=== PATIENT | female | born 1985 | race African-American/Black ===

== ENCOUNTER 2016-10-12 09:09 | Day surgery (SDC) | payer OTHER ==
[2016-10-08 12:40] VITALS: BMI 32.8
[2016-10-12] MEDS ORDERED: BUPIVACAINE HCL/PF 0.5% (5MG/ML) 10 ML VIAL ONE (10:31)
[2016-10-12] MEDS ORDERED: LIDOCAINE HCL 1%, 10 MG/ML (20ML VIAL) ONE (10:31)
[2016-10-12] MEDS ORDERED: PROPOFOL 20 ML ONE (10:39)
[2016-10-12] MEDS ORDERED: MIDAZOLAM HCL 2 MG/2 ML SINGLE DOSE VIAL ONE (10:39)
[2016-10-12] MEDS ORDERED: SODIUM CHLORIDE 0.9% P/F 10 ML VIAL IJ ONE (10:44)
[2016-10-12] MEDS ORDERED: LIDOCAINE HCL/PF 2% SDV 5ML VIAL ONE (10:44)
[2016-10-12] MEDS ORDERED: ceFAZolin SODIUM 1 GM VIAL ONE (10:44)
[2016-10-12] MEDS ORDERED: LIDOCAINE HCL 1%, 10 MG/ML (20ML VIAL) IJ ONE (10:49)
[2016-10-12] MEDS ORDERED: BUPIVACAINE HCL/PF 0.5% (5MG/ML) 10 ML VIAL IJ ONE ×2 (10:49→11:33)
[2016-10-12] MEDS ORDERED: DEXAMETHASONE SOD PHOSPHATE 4 MG/1 ML VIAL ONE ×2 (10:51→11:17)
[2016-10-12] MEDS ORDERED: KETOROLAC TROMETHAMINE 30 MG/1 ML VIAL ONE (10:53)
[2016-10-12] MEDS ORDERED: DEXAMETHASONE SOD PHOSPHATE 4 MG/1 ML VIAL NR ONE (11:33)
--- NOTE | 2016-10-12 11:52 | HP ---
Admitting History and Physical - Admission Chief Complaint: Painful right 3rd and 4th Hammertoes History of Present Illness: Painful when walking in shoes. History Source: Patient - Past Medical History ...LMP: 10/04/16 ...: No Musculoskeletal: Yes: Other (Hammertoes right 3rd and 4th toe) - Smoking History Smoking history: Never smoked Have you smoked in the past 12 months: No - Alcohol/Substance Use Hx Alcohol Use: Yes (RARE) Home Medications - Allergies Allergies/Adverse Reactions: Allergies Allergy/AdvReac Type Severity Reaction Status Date / Time No Known Drug Allergies Allergy Verified 10/12/16 09:56 - Home Medications Home Medications: Ambulatory Orders NK [No Known Home Medication] 10/08/16 Physical Examination Vital Signs: Vital Signs Temperature 97.9 F 10/12/16 09:47 Pulse Rate 82 10/12/16 09:47 Respiratory Rate 18 10/12/16 09:47 Blood Pressure 115/76 10/12/16 09:47 O2 Sat by Pulse Oximetry (%) 100 10/12/16 09:48
--- NOTE | 2016-10-12 11:57 | OP ---
Operative Note - Note: Operative Date: 10/12/16 Pre-Operative Diagnosis: Rigth 3rd and 4th Hammertoes Operation: Arthroplasty right 3rd and 4th toes Findings: Contracted right 3rd and 4th toes with bursitis dorsal aspects of proximal interphalangeal joints. Surgeon: Mita Garcia Anesthesiologist/NUCLEAR ENGINEER: Dixon Adan Anesthesia: MAC Specimens Removed: Bone from proximal phalanx right 3rd and 4th toes. Estimated Blood Loss (mls): 1 Operative Report Dictated: Yes
[2016-10-12 13:13] VITALS: TEMP 97.8
[2016-10-12 14:07] VITALS: BP 132/76; PULSE 78
--- NOTE | 2016-10-13 09:34 | OP ---
DATE OF OPERATION: 10/12/2016 SURGEON: Mita Garcia DPM PREOPERATIVE DIAGNOSIS: Hammertoe, right 3rd toe. Hammertoe, right 4th toe. POSTOPERATIVE DIAGNOSIS: Hammertoe, right 3rd toe. Hammertoe, right 4th toe. PATHOLOGY: Bone. OPERATION: Proximal interphalangeal joint arthroplasty of right 3rd toe and right 4th toe. ANESTHESIA: Local with IV sedation. HEMOSTASIS: Pneumatic ankle tourniquet. ESTIMATED BLOOD LOSS: 1 mL. MATERIALS: None. INJECTABLES: None. OPERATIVE PROCEDURE: The patient was brought to the operating room and placed on the operating table in a supine position. A pneumatic ankle tourniquet was then placed on the patient's right ankle. Following IV sedation, local anesthesia was obtained to the 3rd and 4th toes on the right foot utilizing a total of 9 mL of a 1:1 mixture of 1% lidocaine plain and 0.5% Marcaine plain. The foot was then scrubbed, prepped, and draped in the usual aseptic manner. An Esmarch bandage was then utilized to exsanguinate the patient's right foot, and the tourniquet was inflated. Attention was directed to the 3rd digit where a 2-cm linear longitudinal incision was made over the dorsal aspect of the proximal interphalangeal joint of the digit. The incision was then deepened through the subcutaneous tissues, with care to retract all neurovascular structures. All bleeders were cauterized and ligated. A transverse tenotomy and capsulotomy was performed to the proximal interphalangeal joint of the 3rd digit of the right foot. The head of the proximal phalanx was then freed of its soft tissue attachment. A double-action bone cutter was then utilized to resect the head of the proximal phalanx and was then passed from the operating room table. The phalanx was then smoothed of its rough edges with a bone rasp. The wound was then flushed with copious amounts of sterile saline. Attention was then directed to the 4th digit of the right foot, where a 2-cm linear longitudinal incision was made over the dorsal aspect of the proximal interphalangeal joint. The incision was deepened through the subcutaneous tissues while all neurovascular structures were retracted. All bleeders were cauterized. A transverse tenotomy and capsulotomy was performed through the proximal interphalangeal joint of the right 4th digit. The head of the proximal phalanx was then freed of its soft tissue attachments, and a double-action bone cutter was then used to resect the head of the proximal phalanx, which was then passed from the operating room table. The phalanx was then smoothed of its rough edges using a bone rasp. The wound was then flushed with copious amounts of sterile saline. At this point, 4-0 Vicryl was then used, and extensor tendon on both the right 3rd toe and the 4th toe was reapproximated. Nylon 4-0 was then used to approximate the skin on the right 3rd toe as well as the right 4th toe. It was noted that during the suturing of the skin on the right 4th toe, the needle penetrated the surgeon's gloves. The needle and the instruments were immediately removed from the operating field, and new sterile instruments and new sterile suture was then used to complete the suturing, and also the surgeon's gloves were immediately changed and new sterile gloves were used. Upon completion of the procedure, a total of 5 mL of 5:1 mixture of 0.5% Marcaine plain and 4 mg of dexamethasone phosphate was infiltrated around both surgical sites. The incisions were dressed with Betadine-soaked Adaptic and covered with sterile compressive dressing such as 4 x 4's and Jamil. The tourniquet was then deflated and immediate hyperemia returned to all digits. The foot was then wrapped with Coban and an Parish bandage. The patient tolerated the procedure well and was transferred to the recovery room with all vital signs stable and vascular status intact to the feet. Following postoperative monitoring, the patient will be discharged, given instructions and prescriptions which were discussed prior to the surgery. MEGHAN FATIMA/[id number]
--- NOTE | 2016-10-13 14:21 | PATH ---
Surgical Pathology Report Patient Name: MEEK TRIN[facility]. Rec. #: [id number] /Age/Gender: 1985 (Age: 31) / F Account: [id number] Location: [facility] SURGICAL Taken: 10/12/2016 Received: 10/12/2016 Reported: 10/13/2016 Physicians: Mita Garcia DPM Specimen(s) Received HAMMER TOE RIGHT 3RD & 4TH TOES Clinical History Painful hammertoes (right third and fourth) Final Diagnosis BONE, RIGHT THIRD AND FOURTH TOE HAMMER TOES, ARTHROPLASTY: BONE AND CARTILAGE WITH DEGENERATIVE CHANGES. Electronically Signed Harish Pichardo M.D. Gross Description Received in formalin labeled "hammertoe right third and fourth toe" are 2 jacobs, irregular portions of bone measuring 1.0 x 0.5 x 0.5 cm and 1.1 x 0.7 x 0.5 cm. The specimens are bisected and entirely submitted in one cassette, following decalcification. /10/12/2016 [facility]
== END 2016-10-12 14:11 | disposition home or self-care (01) ==
LOC: JASU-SURG 09:09
PROVIDERS: ATTEND Podiatrist Foot Surgery
PROC: 0SRP0JZ Replacement of Right Toe Phalangeal Joint with Synthetic Substitute, Open Approach (ICD-10-PCS; principal; 2016-10-12 10:30)
DX: M20.41 Other hammer toe(s) (acquired), right foot (principal)
CPT/HCPCS: 73630-TC-RT; 84703; 88304-TC; 88311-TC; 94760; 97116-GP